=== PATIENT | female | born 1960 | race Two or more races ===

== ENCOUNTER → 2019-12-01 | Emergency (ER) | payer OTHER ==
[~2019-12-01] VITALS: Ht 162.6 cm; Wt 74.8 kg
[~2019-12-01] MED LIST: DIOVAN HCT 3201 EAC1; NORVASC5 MG
== END | disposition home or self-care (01) ==
LOC: ER 19:14
DX: B34.9 Viral infection, unspecified (principal); B96.0 Mycoplasma pneumoniae [M. pneumoniae] as the cause of diseases classified elsewhere